=== PATIENT | female | born 1985 | race Caucasian/White ===

== ENCOUNTER 2019-08-15 09:40 | Emergency (ER) | payer OTHER ==
[~2019-08-15] VITALS: Ht 154.9 cm; Wt 87.7 kg
[~2019-08-15 09:40] MED LIST: ACET325T14 PO; DOCU-131 PO; IBUP-1222 PO; OXYC-302 PO; PREN1TAB60 PO; VALA500T4 PO
--- NOTE | 2019-08-15 10:04 | NUR ---
PT WITH C/O LOW GRADE FEVER 99.9, AND SORE THROAT BEGINNING YESTERDAY 08/13. PT DENIES RESP SYMTOMS.
[2019-08-15] MEDS ORDERED: ACETAMINOPHEN 500 MG TABLET PO ONE (10:30)
[2019-08-15] MEDS ORDERED: SODIUM CHLORIDE 0.9% 1,000ML IVBOLUS ONE (10:30)
[2019-08-15] MEDS ORDERED: KETOROLAC 30 MG/1 ML IVPush ONE (10:30)
[2019-08-15] MEDS ORDERED: KETOROLAC 30 MG/1 ML ONE (10:33)
[2019-08-15] MEDS ORDERED: ACETAMINOPHEN 500 MG TABLET ONE (10:33)
[2019-08-15 10:42] LABS: BASOPHILS # (AUTO) 0.06 x10^3/uL (0-0.1); BASOPHILS % (AUTO) 1 % (0-1); EOSINOPHILS # (AUTO) 0.01 x10^3/uL (0-0.4); EOSINOPHILS % (AUTO) 0 % (1-7); LYMPHOCYTES # (AUTO) 0.79 x10^3/uL (1-3.4); LYMPHOCYTES % (AUTO) 6 % (22-44); MD NO; MEAN CORPUSCULAR HEMOGLOBIN 31.6 pg (27.0-34.8); MEAN CORPUSCULAR HGB CONC 34.1 g/dL (32.4-35.8); MEAN CORPUSCULAR VOLUME 92.6 fL (80-100); MEAN PLATELET VOLUME 9.9 fL (7.4-10.4); MONOCYTES # (AUTO) 0.34 x10^3/uL (0.2-0.8); MONOCYTES % (AUTO) 3 % (2-9); NEUTROPHILS # (AUTO) 12.64 x10^3/uL (1.8-6.8); NEUTROPHILS % (AUTO) 91 % (42-75); PLATELET COUNT 254 x10^3/uL (130-400); RED BLOOD COUNT 4.71 x10^6/uL (3.82-5.3); RED CELL DISTRIBUTION WIDTH 12.9 % (9.6-15.2)
[2019-08-15 10:54] LABS: ANION GAP 6 mmol/L (5-15); CHLORIDE 107 mmol/L (98-107)
[2019-08-15 10:55] LABS: RAPID INFLUENZA A Negative (Negative); RAPID INFLUENZA B Negative (Negative)
[2019-08-15 10:58] LABS: ALANINE AMINOTRANSFERASE 23 U/L (12-78); ALKALINE PHOSPHATASE 93 U/L (45-117); BILIRUBIN,TOTAL 0.4 mg/dL (0.2-1.0); CREATININE 0.73 mg/dL (0.55-1.02); TOTAL PROTEIN 8.2 g/dL (6.4-8.2)
--- NOTE | 2019-08-15 11:56 | NUR ---
BREAK RN: DUDLEY SMART RESTING ON HOLLIE. NAD NOTED. SKIN PWD. RESP EVEN AND UNLABORED. PT AO X 4. PT AWARE THAT WE ARE WAITING FOR LAB/IMAGING RESULTS. PT ON CONT BP, CARDIAC AND O2 MONITORS. CALL LIGHT WITHIN REACH.
[2019-08-15 12:23] VITALS: BP 109/62
== END 2019-08-15 12:25 | disposition home or self-care (01) ==
LOC: ED 12:17
DX: J02.0 Streptococcal pharyngitis (principal); R00.0 Tachycardia, unspecified; M79.10 Myalgia, unspecified site
CPT/HCPCS: 36415; 80053; 83605; 84145; 85025; 87400; 87880; 93005; 96374; 99284; J1885; J7030